=== PATIENT | male | born 2000 | race Two or more races ===

== ENCOUNTER 2023-12-05 03:04 | Emergency (ER) | payer OTHER ==
[~2023-12-05] VITALS: Ht 170.2 cm; Wt 88.9 kg
[~2023-12-05 03:04] MED LIST: RISPERDAL1 MG; ZOLOFT100 MG
[2023-12-05] MEDS ORDERED: METHYLPREDNISOLONE SOD SUCC 125 MG VIAL IV STA (03:52)
[2023-12-05] MEDS ORDERED: DIPHENHYDRAMINE HCL 50 MG/ML VIAL 1ML IV STA (03:52)
[2023-12-05] MEDS ORDERED: METHYLPREDNISOLONE SOD SUCC 125 MG VIAL ONE (03:55)
[2023-12-05] MEDS ORDERED: DIPHENHYDRAMINE HCL 50 MG/ML VIAL 1ML ONE (03:55)
[2023-12-05] MEDS ORDERED: BENADRYL ALLERG25 MG PO (05:02)
[2023-12-05] MEDS ORDERED: MEDROL8 MG PO (05:02)
== END 2023-12-05 05:12 | disposition home or self-care (01) ==
LOC: ER 03:05
DX: R22.0 Localized swelling, mass and lump, head (principal); T78.40XA Allergy, unspecified, initial encounter; Z88.6 Allergy status to analgesic agent

== ENCOUNTER 2023-12-05 19:07 | Emergency (ER) | payer OTHER ==
[~2023-12-05] VITALS: Ht 167.6 cm; Wt 81.6 kg
[~2023-12-05 19:07] MED LIST changes: +BENADRYL ALLERG25 MG PO; +MEDROL8 MG PO
[2023-12-05] MEDS ORDERED: 0.9 % SODIUM CHLORIDE 1,000 ML IV SCH (19:45)
[2023-12-05 20:11] LABS: HEMATOCRIT 36.5 % (39.0-48.0); HEMOGLOBIN 12.5 g/dL (13-16.00); MEAN CELL VOLUME 84.4 fL (80.0-100.00); MEAN CORPUSCULAR HEMOGLOBIN 28.8 pg (27.00-32.0); MEAN CORPUSCULAR HGB CONC 34.2 g/dl (32.0-36.0); PLATELET COUNT 288 K/uL (150-450); RED BLOOD COUNT 4.33 M/uL (4.00-6.00); RED CELL DISTRIBUTION WIDTH 12.9 % (11.5-14.5)
[2023-12-05 20:26] LABS: ALBUMIN 4.2 gm/dL (3.4-5.0); BILIRUBIN TOTAL 1.35 mg/dL (0.3-1.2); CALCIUM 9.4 mg/dL (8.5-10.1); CREATININE SERUM 0.8 mg/dL (0.70-1.30); GFR 118.76; GLOBULINA 3.5 G/DL (2.4-3.5); POTASSIUM 3.17 mEq/L (3.5-5.1); TOTAL PROTEIN 7.7 gm/dL (6.4-8.2)
[2023-12-05 20:36] LABS: PH,URINE 6.5 (5.0-8.0); URINE APPEARANCE Clear; URINE BILIRRUBIN Small (NEGATIVE); URINE BLOOD Negative; URINE COLOR Dark Yellow; URINE GLUCOSE Negative (NEGATIVE); URINE KETONE Trace (NEGATIVE); URINE LEUKOCYTE Negative; URINE NITRATE Negative
[2023-12-05 20:40] LABS: URINE BACTERIA 45.3 uL (0.0-1933); URINE CAST 4.27 uL (0.0-1.40); URINE EPITHELIAL CELLS 12.9 uL (0.0-38.8); URINE RBC 20.6 uL (0.0-20.8); URINE WBC 11.5 uL (0.0-23.2)
[2023-12-05 20:49] LABS: URINE PROTEIN 100 (NEGATIVE)
== END 2023-12-05 22:59 | disposition home or self-care (01) ==
LOC: ER 19:07
PROVIDERS: General Practice
DX: S09.8XXA Other specified injuries of head, initial encounter (principal); T07.XXXA Unspecified multiple injuries, initial encounter; X58.XXXA Exposure to other specified factors, initial encounter; Y93.89 Activity, other specified; Y92.89 Other specified places as the place of occurrence of the external cause; Y99.8 Other external cause status; Z88.6 Allergy status to analgesic agent
CPT/HCPCS: 36415; 70450; 71250; 72125; 74177; Q9965